=== PATIENT | female | born 1985 | race Caucasian/White ===

== ENCOUNTER 2017-08-05 08:49 | Emergency (ER) | payer MEDICAID, OTHER ==
[2017-08-05 09:03] VITALS: BMI 37.8
[2017-08-05 09:05] VITALS: BP 115/77; PULSE 75; RESP 20; TEMP 98.3; O2SAT 98
--- NOTE | 2017-08-05 11:47 | C.PDOC ---
History Of Present Illness 32 yr old female presents to the ER stating 1 of the filling in her teeth fell out few days ago and now has pain to the area. Denies fever, foul taste in damaris mouth, drainage from the area, mouth swelling, throat swelling or vomiting. Time Seen by Provider: 08/05/17 09:20 Chief Complaint (Nursing): Dental Pain History Per: Patient History/Exam Limitations: no limitations Onset/Duration Of Symptoms: Days Current Symptoms Are (Timing): Still Present Past Medical History Reviewed: Historical Data, Nursing Documentation, Vital Signs Vital Signs: Last Vital Signs Temp 98.3 F 08/05/17 09:03 Pulse 75 08/05/17 09:03 Resp 20 08/05/17 09:03 BP 115/77 08/05/17 09:03 Pulse Ox 98 08/05/17 11:49 - [facility] Procedures OTHER SKIN & SUBQ I D (03/16/13) Family History: States: No Known Family Hx - Social History Hx Tobacco Use: Yes Hx Alcohol Use: No Hx Substance Use: No - Immunization History Hx Tetanus Toxoid Vaccination: No Hx Influenza Vaccination: No Hx Pneumococcal Vaccination: No Review Of Systems Except As Marked, All Systems Reviewed And Found Negative. Constitutional: Negative for: Fever ENT: Positive for: Other ((+) dental pain). Negative for: Mouth Swelling, Throat Swelling Gastrointestinal: Negative for: Vomiting Physical Exam - Physical Exam Appears: Non-toxic, No Acute Distress Skin: Warm, Dry, Rash Oral Mucosa: Moist Teeth: Other (#6 tooth, partial filling missing) Gingiva: Normal Appearing, No Erythema, No Swelling Throat: Normal, No Erythema, No Exudate, No Drooling Respiratory: Normal Breath Sounds, No Rales, No Rhonchi, No Stridor, No Wheezing Neurological/Psych: Oriented x3, Normal Speech ED Course And Treatment O2 Sat by Pulse Oximetry: 98 (RA) Pulse Ox Interpretation: Normal Medical Decision Making Medical Decision Making: PLAN: * Motrin PO Disposition - Disposition Disposition: HOME/ ROUTINE Disposition Time: 09:30 Condition: GOOD Additional Instructions: Thank you for letting us take care of you today. The emergency medical care you received today was directed at your acute symptoms. If you were prescribed any medication, please fill it and take as directed. It may take several days for your symptoms to resolve. Return to the Emergency Department if your symptoms worsen, do not improve, or if you have any other problems. Please contact your doctor or call one of the physicians/clinics you have been referred to that are listed on the Patient Visit Information form that is included in your discharge packet. Bring any paperwork you were given at discharge with you along with any medications you are taking to your follow up visit. Our treatment cannot replace ongoing medical care by a primary care provider (PCP) outside of the emergency department. Thank you for allowing the [facility] team to be part of your care today. Follow up with the dental offices in 1-2 days for re-evaluation and further management. Prescriptions: Ibuprofen [Motrin] 600 mg PO Q6 PRN #20 tab PRN Reason: Pain, Moderate (4-7) Instructions: Dental Caries (ED) Forms: [employer] (Malagasy) - Clinical Impression Clinical Impression: Dental caries - Scribe Statement The provider has reviewed the documentation as recorded by the Diyaibe Maddy Jones Provider Attestation: All medical record entries made by the Scribe were at my direction and personally dictated by me. I have reviewed the chart and agree that the record accurately reflects my personal performance of the history, physical exam, medical decision making, and the department course for this patient. I have also personally directed, reviewed, and agree with the discharge instructions and disposition.
== END 2017-08-05 09:36 | disposition home or self-care (01) ==
LOC: C.ER 08:49
DX: K02.9 Dental caries, unspecified (principal); Z87.891 Personal history of nicotine dependence